=== PATIENT | female | born 1990 | race Caucasian/White ===

== ENCOUNTER → 2016-12-20 | Outpatient (CLI) | payer MEDICAID, OTHER ==
[2016-12-20 15:27] LABS: MEAN CORPUSCULAR HEMOGLOBIN 31.1 pg (27.0-33.0); MEAN CORPUSCULAR HGB CONC 34.1 g/dl (32.0-36.5); MEAN CORPUSCULAR VOLUME 91.1 fl (80.0-96.0); WHITE BLOOD COUNT 14.3 K/mm3 (4.0-10.0)
[2016-12-22 11:12] LABS: HEP C VIRUS AB SCREEN MEDICARE 0.1 INDEX (<0.8)
== END ==
LOC: M LAB 13:46
PROVIDERS: ATTEND Obstetrics & Gynecology
DX: Z34.82 Encounter for supervision of other normal pregnancy, second trimester (principal)

== ENCOUNTER → 2017-01-18 | Outpatient (REF) | payer OTHER | LOC: M LAB REF 16:27 | PROVIDERS: ATTEND Advanced Practice Midwife | DX: Z34.83 Encounter for supervision of other normal pregnancy, third trimester (principal) ==

== ENCOUNTER 2017-02-14 05:59 | Inpatient (IN) | payer OTHER ==
[2017-02-14] VITALS (35 sets, daily range): BP systolic 98–165; BP diastolic 59–89
[~2017-02-14] VITALS: Ht 157.5 cm; Wt 61.0 kg
[2017-02-14] MEDS ORDERED: LACTATED RINGER'S 1000 ML IV STA (06:48)
[2017-02-14] MEDS ORDERED: AMPICILLIN SOD 2 GM in D5W MINI-BAG PLUS 100 ML IV STA (06:48)
[2017-02-14] MEDS ORDERED: OXYTOCIN DRIP 30 UNITS in APPROPRIATE DILUENT 1 EA IV SCH ×2 (07:00→16:21)
[2017-02-14 08:21] LABS: MEAN CORPUSCULAR HEMOGLOBIN 31.4 pg (27.0-33.0); MEAN CORPUSCULAR HGB CONC 34.3 g/dl (32.0-36.5); MEAN CORPUSCULAR VOLUME 91.6 fl (80.0-96.0); RED CELL DISTRIBUTION WIDTH 13.7 % (11.5-14.5); WHITE BLOOD COUNT 13.2 K/mm3 (4.0-10.0)
[2017-02-14] MEDS: LR 1,000 ML IV SCH ×2 (10:06→13:47)
[2017-02-14] MEDS ORDERED: FENTANYL 2MCG/ML ROPIVACAINE 0.2% IN 0.9% NACL 200ML IVBAG As Ordered ONE (10:28)
[2017-02-14] MEDS ORDERED: EPIDURAL/PCA KEYS XX PRN (11:45)
[2017-02-14] MEDS ORDERED: ePHEDrine SULFATE 25 MG/5 ML(5MG/ML) SYRINGE IV PRN (11:45)
[2017-02-14] MEDS ORDERED: EPIDURAL COMMENT XX SCH (11:45)
[2017-02-14] MEDS ORDERED: FENTANYL/ROPIVACAINE/NACL BAG 200 ML EPIDURAL SCH (11:45)
[2017-02-14] MEDS ORDERED: NALOXONE INJ 0.4 MG/1 ML VIAL (J2310) IV PRN (11:45)
[2017-02-14] MEDS ORDERED: REFRIGERATOR IV KEYS XX PRN (11:45)
[2017-02-14] MEDS ORDERED: ONDANSETRON 4MG/2ML VIAL (J2405) IV PRN (11:45)
[2017-02-14] MEDS ORDERED: diphenhydrAMINE INJ 50MG/ML VIAL (J1200) IV PRN (11:45)
[2017-02-14] MEDS ORDERED: LACTATED RINGER'S 1000 ML IV PRN (11:45)
[2017-02-14] MEDS ORDERED: AMPICILLIN SOD 1 GM in D5W MINI-BAG PLUS 50 ML IV SCH (12:00)
[2017-02-14] MEDS ORDERED: DOCUSATE SODIUM 100 MG CAP PO PRN (16:30)
[2017-02-14] MEDS ORDERED: RHOGAM 300 MCG (1500 IU) INJ (J2790) IM SCH (16:30)
[2017-02-14] MEDS ORDERED: ANUSOL HC CREAM 30GM TOP PRN (16:30)
[2017-02-14] MEDS ORDERED: METHYLERGONOVINE MALEATE 0.2 MG TAB PO PRN (16:30)
[2017-02-14] MEDS ORDERED: MEASLES,MUMPS,RUBELLA VACCINE INJ (MMR-II) (90707) SC SCH (16:30)
[2017-02-14] MEDS ORDERED: DIBUCAINE 1% OINTMENT 30GM TOP PRN (16:30)
[2017-02-14] MEDS ORDERED: ACETAMINOPHEN 500 MG TAB PO PRN (16:30)
[2017-02-14] MEDS: IBUPROFEN 800 MG TAB PO PRN (16:56)
--- NOTE | 2017-02-14 17:10 | DNPDOC ---
[facility] Delivery Note Delivery Note Patient is 26 year old female who is now a at 39.3 weeks gestation. She was admitted to L&D for IOL for IUGR. Fetus measuring 8%. She received Pitocin for her induction. She obtained an epidural for pain management. She progressed to fully dilated at 1458. She delivered a live male spontaneously at 1503, which was nurse controlled. No nuchal cord reported with delivery. The baby was active and crying when placed on maternal abdomen. The cord was clamped and cut prior to arrival. A 3 vessel cord was noted. Cord blood obtained. Placenta delivered intact and spontaneously at 1508 by Hopkins mechanism. Uterine hemostasis achieved by rapid infusion of IV Pitocin and fundal massage. Perineal inspection done. Bilateral labial lacerations noted. Repaired bilaterally with a 4.0 vicryl rapide to acheive hemostasis. EBL 250 cc. 8/ 9. Weight 6 lbs. 9 oz; 2990 grams. Mother named her son Ivan and she will be him. Mom and baby in stable condition. MARCI SANDERS CNM Feb 14, 2017 17:10
[2017-02-14 17:46] LABS: MEAN CORPUSCULAR HEMOGLOBIN 31.4 pg (27.0-33.0); MEAN CORPUSCULAR HGB CONC 34.4 g/dl (32.0-36.5); MEAN CORPUSCULAR VOLUME 91.3 fl (80.0-96.0); RED CELL DISTRIBUTION WIDTH 13.3 % (11.5-14.5); WHITE BLOOD COUNT 22.4 K/mm3 (4.0-10.0)
[2017-02-15] MEDS: IBUPROFEN 800 MG TAB PO PRN ×2 (06:01→19:28)
[2017-02-15 06:14] VITALS: BP 121/75
[2017-02-15] MEDS: PRENATAL VITAMIN TAB PO SCH (08:11)
[2017-02-15 18:00] VITALS: BP 121/61
[2017-02-16 06:19] VITALS: BP 111/64
[2017-02-16] MEDS: PRENATAL VITAMIN TAB PO SCH (08:16)
[2017-02-16] MEDS ORDERED: PRENTAB9 PO (09:17)
[2017-02-16] MEDS ORDERED: ACET50TA PO (09:17)
[2017-02-16] MEDS ORDERED: IBUP-1114 PO (09:17)
== END 2017-02-16 11:20 | disposition home or self-care (01) | DRG 560 ==
LOC: M LDI 05:59 → M OBS 17:52
PROVIDERS: ADMIT Obstetrics & Gynecology; ATTEND Obstetrics & Gynecology
PROC: 10E0XZZ Delivery of Products of Conception, External Approach (ICD-10-PCS; principal; 2017-02-14)
PROC: 0HQ9XZZ Repair Perineum Skin, External Approach (ICD-10-PCS; 2017-02-14)
PROC: 3E033VJ Introduction of Other Hormone into Peripheral Vein, Percutaneous Approach (ICD-10-PCS; 2017-02-14)
DX: O36.5930 Maternal care for other known or suspected poor fetal growth, third trimester, not applicable or unspecified (principal); D69.6 Thrombocytopenia, unspecified; O99.113 Other diseases of the blood and blood-forming organs and certain disorders involving the immune mechanism complicating pregnancy, third trimester; F17.200 Nicotine dependence, unspecified, uncomplicated; Z37.0 Single live birth; O99.334 Smoking (tobacco) complicating childbirth; Z3A.39 39 weeks gestation of pregnancy; O70.0 First degree perineal laceration during delivery

== ENCOUNTER → 2018-05-24 | Outpatient (CLI) | payer OTHER | LOC: M WUC 14:53 | DX: S62.304D Unspecified fracture of fourth metacarpal bone, right hand, subsequent encounter for fracture with routine healing (principal); X58.XXXD Exposure to other specified factors, subsequent encounter; Y92.9 Unspecified place or not applicable; S62.306D Unspecified fracture of fifth metacarpal bone, right hand, subsequent encounter for fracture with routine healing | CPT/HCPCS: 73120 ==

== ENCOUNTER → 2018-06-10 | Outpatient (CLI) | payer OTHER | LOC: M OUTALCOH 08:14 | DX: Z13.89 Encounter for screening for other disorder (principal); F15.20 Other stimulant dependence, uncomplicated ==

== ENCOUNTER 2018-06-17 09:37 | Outpatient (RCR) | payer OTHER | END 2018-07-03 | LOC: M OUTALCOH 06-27 14:00 | DX: F15.20 Other stimulant dependence, uncomplicated (principal); F12.10 Cannabis abuse, uncomplicated; F17.200 Nicotine dependence, unspecified, uncomplicated ==

== ENCOUNTER 2018-07-04 02:00 | Outpatient (RCR) | payer OTHER | END 2018-08-02 | LOC: M OUTALCOH 07-10 08:00 | DX: F15.20 Other stimulant dependence, uncomplicated (principal); F12.10 Cannabis abuse, uncomplicated; F17.200 Nicotine dependence, unspecified, uncomplicated ==

== ENCOUNTER → 2018-08-29 | Outpatient (REF) | payer OTHER ==
[~2018-08-29] MED LIST: IBUP-1114 PO; MAPA500T17 PO; PRENTAB9 PO
[2018-08-29 22:24] LABS: INFLUENZA A AMPLIFICATION NEGATIVE (NEGATIVE); INFLUENZA B AMPLIFICATION NEGATIVE (NEGATIVE)
== END ==
LOC: M LAB REF 09:28
PROVIDERS: ATTEND Physician Assistant
DX: J11.1 Influenza due to unidentified influenza virus with other respiratory manifestations (principal)

== ENCOUNTER → 2018-09-02 | Outpatient (RCR) | payer OTHER ==
[~2018-09-02] MED LIST changes: -MAPA500T17 PO; +MAPA500T2 PO
== END ==
LOC: M OUTALCOH 08-05 15:55
PROVIDERS: ATTEND Psychiatry & Neurology Psychiatry
DX: F15.20 Other stimulant dependence, uncomplicated (principal); F12.10 Cannabis abuse, uncomplicated; F17.200 Nicotine dependence, unspecified, uncomplicated

== ENCOUNTER 2018-09-26 10:00 | Outpatient (RCR) | payer OTHER | END 2018-10-03 | LOC: M OUTALCOH 10:00 | PROVIDERS: ATTEND Psychiatry & Neurology Psychiatry | DX: F15.20 Other stimulant dependence, uncomplicated (principal); F12.10 Cannabis abuse, uncomplicated; F17.200 Nicotine dependence, unspecified, uncomplicated ==

== ENCOUNTER → 2018-12-26 | Outpatient (CLI) | payer MEDICAID, OTHER, SELFPAY | LOC: M OUTALCOH 08:18 | PROVIDERS: ATTEND Psychiatry & Neurology Psychiatry | DX: F15.20 Other stimulant dependence, uncomplicated (principal); F12.10 Cannabis abuse, uncomplicated ==

== ENCOUNTER → 2019-02-11 | Outpatient (CLI) | payer MEDICAID | LOC: M OUTALCOH 07:58 | PROVIDERS: ATTEND Psychiatry & Neurology Psychiatry | DX: F15.20 Other stimulant dependence, uncomplicated (principal) ==

== ENCOUNTER 2019-02-28 08:45 | Outpatient (RCR) | payer MEDICAID | END 2019-03-02 | LOC: M OUTALCOH 08:45 | PROVIDERS: ATTEND Psychiatry & Neurology Psychiatry | DX: F15.20 Other stimulant dependence, uncomplicated (principal); F12.10 Cannabis abuse, uncomplicated; F17.200 Nicotine dependence, unspecified, uncomplicated ==

== ENCOUNTER 2019-03-07 08:45 | Outpatient (RCR) | payer MEDICAID | END 2019-04-02 | LOC: M OUTALCOH 08:45 | PROVIDERS: ATTEND Psychiatry & Neurology Psychiatry | DX: F15.20 Other stimulant dependence, uncomplicated (principal); F12.10 Cannabis abuse, uncomplicated; F17.200 Nicotine dependence, unspecified, uncomplicated ==

== ENCOUNTER → 2019-12-02 | Outpatient (REF) | payer OTHER ==
[2019-12-02 17:43] LABS: HCG, SERUM QUANTITATIVE 420 MIU/ML
[2019-12-02 17:55] LABS: HEMATOCRIT 42.4 % (36.0-47.0); HEMOGLOBIN 14.3 g/dl (12.0-15.5); MEAN CORPUSCULAR HEMOGLOBIN 29.9 pg (27.0-33.0); MEAN CORPUSCULAR HGB CONC 33.7 g/dl (32.0-36.5); MEAN CORPUSCULAR VOLUME 88.5 fl (80.0-96.0); PLATELET COUNT, AUTOMATED 189 10^3/uL (150-450); RED BLOOD COUNT 4.79 10^6/uL (4.00-5.40); WHITE BLOOD COUNT 8.9 10^3/uL (4.0-10.0)
[2019-12-03 10:30] LABS: RUBELLA IgG QUALITATIVE IMMUNE (IMMUNE)
[2019-12-03 10:59] LABS: HEPATITIS C VIRUS ABY INDEX 0.1 INDEX (<0.8)
[2019-12-03 11:00] LABS: HIV 1&2 SCREEN CENTAUR NEGATIVE (NEGATIVE)
== END ==
LOC: M LAB REF 17:07
PROVIDERS: ATTEND Obstetrics & Gynecology
DX: O36.80X0 Pregnancy with inconclusive fetal viability, not applicable or unspecified (principal); Z3A.00 Weeks of gestation of pregnancy not specified

== ENCOUNTER → 2019-12-08 | Outpatient (REF) | payer OTHER | LOC: M LAB REF 11:47 | PROVIDERS: ATTEND Obstetrics & Gynecology | DX: O36.80X0 Pregnancy with inconclusive fetal viability, not applicable or unspecified (principal); Z3A.00 Weeks of gestation of pregnancy not specified ==

== ENCOUNTER → 2019-12-16 | Outpatient (REF) | payer OTHER | LOC: M LAB REF 12:11 | PROVIDERS: ATTEND Obstetrics & Gynecology | DX: O36.80X0 Pregnancy with inconclusive fetal viability, not applicable or unspecified (principal) ==

== ENCOUNTER → 2019-12-26 | Outpatient (CLI) | payer OTHER ==
--- NOTE | 2019-12-26 15:46 | REP ---
REASON FOR EXAM: Followup. COMPARISON: 12/10/2019 Transvesical imaging was obtained. Once again, within the uterus there is an anechoic structure with increased echoes surrounding it, consistent with a decidual reaction. Today's examination shows echogenic material within the gestational sac consistent with a pole, the mean crown-rump length measurement of which is consistent with a 7 week 3 day gestational age. Based on that, the estimated date of delivery is 08/10/2020. Doppler interrogation of the heart shows a heart rate of 153 beats per minute. Evaluation of the maternal adnexal spaces shows no abnormalities. To the right of the developing chorion, there is a 1.3 x 1.3 x 1.4 cm sized area of decreased echoes. This previously measured 2.4 x 0.7 x 1.8 cm. IMPRESSION: Early OB ultrasound as described above. The small area of decreased echoes seen today has gotten smaller compared to the prior exam, likely representing an area of chorionic nonfusion during this early stage of . Certainly, this should be correlated clinically for a resolving subchorionic hemorrhage. Electronically Signed by Sam Villatoro DO 12/26/2019 03:52 P
== END ==
LOC: M RAD 10:33
PROVIDERS: ATTEND Obstetrics & Gynecology
DX: O36.80X0 Pregnancy with inconclusive fetal viability, not applicable or unspecified (principal)

== ENCOUNTER → 2020-03-15 | Outpatient (CLI) | payer OTHER ==
--- NOTE | 2020-03-15 12:39 | REP ---
REASON: anatomy. Multiple ultrasonographic images of the gravid uterus shows a single living intrauterine gestation in the transverse head to the maternal left position. Doppler interrogation of the heart shows a heart rate of 144 beats per minute. The placenta is posterior and not low lying. The subjective amniotic fluid volume is within normal limits. The cervix measures 3.8 cm in length and is closed. Evaluation of the maternal adnexal spaces showed no abnormalities. BPD 4.6 cm = 190 weeks 6 days HC 17.1 cm = 19 weeks 5 days AC 14.4 cm = 19 weeks 5 days FL 3.0 cm = 19 weeks 2 days The estimated weight of 298 grams, which is at the 40th percentile for a 53-kwxn-1-day gestational age. The anatomical structures seen as within normal limits are as follows: Thalami, cavum septum pellucidum, cerebellum, cisterna magna, cerebral ventricles, upper lip, stomach, cord insertion, three-vessel umbilical cord, kidneys, bladder, spine, and upper and lower extremities. Four chamber heart and ventricular outflow tracts are seen suboptimally today. IMPRESSION: Single living intrauterine gestation as described above with an estimated gestational age of 19 weeks 3 days via composite criteria and estimated date of delivery of 08/06/2020 by today's exam. No anomalies were detected, however, I recommend a followup examination to better visualize those structures not well seen today as described above.
== END ==
LOC: M WHC 07:50
PROVIDERS: ATTEND Obstetrics & Gynecology
DX: Z34.82 Encounter for supervision of other normal pregnancy, second trimester (principal); Z3A.19 19 weeks gestation of pregnancy

== ENCOUNTER → 2020-05-06 | Outpatient (CLI) | payer OTHER ==
[2020-05-06 16:36] LABS: HEMATOCRIT 37.3 % (36.0-47.0); HEMOGLOBIN 12.6 g/dl (12.0-15.5); MEAN CORPUSCULAR HGB CONC 33.8 g/dl (32.0-36.5); MEAN CORPUSCULAR VOLUME 91.6 fl (80.0-96.0); PLATELET COUNT, AUTOMATED 153 10^3/uL (150-450); RED BLOOD COUNT 4.07 10^6/uL (4.00-5.40); WHITE BLOOD COUNT 13.6 10^3/uL (4.0-10.0)
== END ==
LOC: M WUC 13:03
PROVIDERS: ATTEND Obstetrics & Gynecology
DX: Z34.82 Encounter for supervision of other normal pregnancy, second trimester (principal); Z3A.00 Weeks of gestation of pregnancy not specified

== ENCOUNTER → 2020-07-06 | Outpatient (REF) | payer OTHER | LOC: M LAB REF 16:35 | PROVIDERS: ATTEND Advanced Practice Midwife | DX: Z34.83 Encounter for supervision of other normal pregnancy, third trimester (principal); Z3A.00 Weeks of gestation of pregnancy not specified ==

== ENCOUNTER 2020-08-08 13:42 | Outpatient (CLI) | payer OTHER ==
[~2020-08-08] VITALS: Ht 154.9 cm; Wt 80.7 kg
[2020-08-08 14:01] VITALS: BP 113/67
[2020-08-08] MEDS ORDERED: TUMS500C PO (14:08)
[2020-08-08 16:03] VITALS: BP 128/84
[2020-08-08 17:06] VITALS: BP 131/72
[2020-08-08 18:46] VITALS: BP 120/77
[2020-08-08 20:15] VITALS: BP 119/74
== END 2020-08-08 20:42 | disposition home or self-care (01) ==
LOC: M LDO 13:42
PROVIDERS: ATTEND Obstetrics & Gynecology
DX: O47.1 False labor at or after 37 completed weeks of gestation (principal); Z3A.40 40 weeks gestation of pregnancy

== ENCOUNTER 2020-08-09 20:12 | Inpatient (IN) | payer OTHER ==
[~2020-08-09] VITALS: Ht 154.9 cm; Wt 81.9 kg
[2020-08-09] MEDS ORDERED: LACTATED RINGER'S 1000 ML IV STA (20:18)
[2020-08-09] MEDS ORDERED: LR 1,000 ML IV SCH (20:18)
[2020-08-09 21:09] LABS: HEMATOCRIT 39.9 % (36.0-47.0); HEMOGLOBIN 13.3 g/dl (12.0-15.5); MEAN CORPUSCULAR HEMOGLOBIN 29.8 pg (27.0-33.0); MEAN CORPUSCULAR HGB CONC 33.3 g/dl (32.0-36.5); MEAN CORPUSCULAR VOLUME 89.5 fl (80.0-96.0); PLATELET COUNT, AUTOMATED 145 10^3/uL (150-450); RED BLOOD COUNT 4.46 10^6/uL (4.00-5.40); WHITE BLOOD COUNT 14.5 10^3/uL (4.0-10.0)
[2020-08-09] MEDS: CALCIUM CARBONATE 500 MG CHEW U/D PO PRN (22:18)
[2020-08-10] VITALS (30 sets, daily range): BP systolic 107–137; BP diastolic 64–93
[2020-08-10] MEDS ORDERED: FENTANYL 2MCG/ML ROPIVACAINE 0.2% IN 0.9% NACL 100ML IVBAG As Ordered ONE (01:56)
[2020-08-10] MEDS ORDERED: OXYTOCIN DRIP 30 UNITS in IV 1 EA IV SCH ×2 (02:00→05:34)
[2020-08-10] MEDS ORDERED: ePHEDrine SULFATE 25 MG/5 ML(5MG/ML) SYRINGE IV PRN (02:25)
[2020-08-10] MEDS ORDERED: ONDANSETRON 4MG/2ML VIAL IV PRN (02:25)
[2020-08-10] MEDS ORDERED: LACTATED RINGER'S 1000 ML IV PRN (02:25)
[2020-08-10] MEDS ORDERED: EPIDURAL COMMENT XX SCH (02:25)
[2020-08-10] MEDS ORDERED: EPIDURAL/PCA KEYS XX PRN (02:25)
[2020-08-10] MEDS ORDERED: REFRIGERATOR IV KEYS XX PRN (02:25)
[2020-08-10] MEDS ORDERED: diphenhydrAMINE 50MG/ML VIAL (J1200) IV PRN (02:25)
[2020-08-10] MEDS ORDERED: FENTANYL/ROPIVACAINE/NACL BAG 100 ML EPIDURAL SCH (02:25)
[2020-08-10] MEDS ORDERED: NALOXONE INJ 0.4MG/1ML VIAL (J2310 PER 1MG) IV PRN (02:25)
[2020-08-10] MEDS: CALCIUM CARBONATE 500 MG CHEW U/D PO PRN (03:23)
[2020-08-10] MEDS ORDERED: METHYLERGONOVINE MALEATE 0.2 MG TAB PO PRN (05:45)
[2020-08-10] MEDS ORDERED: BENZOCAINE 20% HEMORRHOIDAL OINTMENT 28GM TUBE TOP PRN (05:45)
[2020-08-10] MEDS ORDERED: MEASLES,MUMPS,RUBELLA VACCINE INJ (MMR-II) (90707) SC SCH (05:45)
[2020-08-10] MEDS ORDERED: IBUPROFEN 600MG TAB PO PRN (05:45)
[2020-08-10] MEDS ORDERED: ACETAMINOPHEN TAB 650MG DOSE (2X325MG) PO PRN (05:45)
[2020-08-10] MEDS ORDERED: DOCUSATE SODIUM 100MG CAPSULE PO PRN (05:45)
[2020-08-10] MEDS ORDERED: RHOGAM 300 MCG (1500 IU) INJ (J2790) IM SCH (05:45)
[2020-08-10 06:14] LABS: CORD GAS ABE V -2.9; CORD GAS HCO3 V 25.5 MEQ/L; CORD GAS O2 SAT V 35.3 %; CORD GAS PCO2 V 58.9 mmHg; CORD GAS PH V 7.254 UNITS; CORD GAS PO2 V 17.1 mmHg; CORD GAS SBC V 20.6 MEQ/L; CORD GAS TCO2 V 27.3 MEQ/L
[2020-08-10] MEDS: PRENATAL VITAMINS CHEWABLE TABLET PO SCH (08:08)
[2020-08-10] MEDS: IBUPROFEN 800 MG TAB PO PRN ×2 (08:08→17:27)
--- NOTE | 2020-08-10 08:14 | HPE ---
HISTORY AND PHYSICAL DATE OF ADMISSION: 08/09/2020 HISTORY OF PRESENT ILLNESS: Bernadette is a 30-year-old female 5, para 2-0-2-2, with an EDC of 08/03/2020, EGA 41 weeks gestation, who was admitted for induction upon admission. No bleeding or leakage of fluid. Good movement. Her records reviewed, which were essentially unremarkable. labs blood type is A positive. Rubella immune. Hepatitis negative. HIV negative. GC and chlamydia negative. One hour sugar testing was within normal limits. Her GBS is negative. PAST MEDICAL HISTORY: Denies. PAST SURGICAL HISTORY: 1. Left wrist fracture. 2. Left knee torn ACL. SOCIAL HISTORY: She is . Denies any alcohol or drugs. She is a current smoker smoking approximately 3-5 cigarettes per day. MEDICATIONS: vitamins. ALLERGIES: No known drug allergies. PHYSICAL EXAMINATION: HEENT: Grossly within normal limits. ABDOMEN: Soft, nontender, and nondistended. EXTREMITIES: No clubbing, cyanosis, or edema. PELVIC: Vaginal exam done earlier 2 cm dilated, 70% effaced, and -3 station in vertex position. ASSESSMENT: Intrauterine at 41 weeks gestation. GBS negative. Being admitted for an induction. PLAN: Admit to labor and delivery. Routine labs sent. Will initiate Pitocin induction. Pain management also because patient asked for an epidural. We will continue to monitor. Anticipate delivery.
--- NOTE | 2020-08-10 12:14 | DN ---
DELIVERY NOTE DATE OF DELIVERY: 08/10/2020 TIME OF : DESCRIPTION OF DELIVERY: Bernadette is a 30-year-old female, 5, para 2, 0, 2, 2, who was admitted at 41 weeks gestation for an induction. She underwent Pitocin induction, progressed to fully dilated after an epidural. She had artificial rupture of membranes after being fully dilated with meconium stained fluid. She then pushed for less than 10 minutes. Delivered a live male in right occiput anterior position over an intact perineum. Meconium stained fluid noted. Apgars 8 and 9. weight 6 pounds 11 ounces. Placenta delivered spontaneously intact, three-vessel cord. Perineum, vagina, cervix inspected. No laceration noted. Estimated blood loss was 250 cc. Both mother and baby in stable condition.
[2020-08-10] MEDS: ACETAMINOPHEN 500 MG TAB PO PRN ×2 (14:06→21:55)
[2020-08-11] MEDS: IBUPROFEN 800 MG TAB PO PRN ×2 (03:11→11:35)
[2020-08-11] MEDS: ACETAMINOPHEN 500 MG TAB PO PRN (06:29)
[2020-08-11 06:41] VITALS: BP 98/57
[2020-08-11] MEDS: PRENATAL VITAMINS CHEWABLE TABLET PO SCH (08:17)
== END 2020-08-11 14:05 | disposition home or self-care (01) | DRG 560 ==
LOC: M LDI 20:12 → M OBS 08-10 09:30
PROVIDERS: ADMIT Obstetrics & Gynecology; ATTEND Obstetrics & Gynecology
PROC: 3E033VJ Introduction of Other Hormone into Peripheral Vein, Percutaneous Approach (ICD-10-PCS; 2020-08-09)
PROC: 10E0XZZ Delivery of Products of Conception, External Approach (ICD-10-PCS; principal; 2020-08-10)
DX: O48.0 Post-term pregnancy (principal); F17.210 Nicotine dependence, cigarettes, uncomplicated; Z37.0 Single live birth; Z3A.41 41 weeks gestation of pregnancy; O99.334 Smoking (tobacco) complicating childbirth

== ENCOUNTER → 2020-08-09 | Outpatient (CLI) | payer OTHER ==
[~2020-08-09] MED LIST changes: +TUMS500C PO
--- NOTE | 2020-08-09 13:43 | REP ---
INDICATION: BPP/EFW/JULIO C. COMPARISON: 04/19/2020 as well as other prior exams. TECHNIQUE: Real-time sonographic evaluation of the gravid uterus performed. FINDINGS: Estimated gestational age is40 weeks 6 days, EDC 08/03/2020. Today's measurements indicate less than expected growth. Presentation: Cephalic Placenta fundal, grade 3, without evidence of placenta previa. heart rate is recorded at 132 beats per minute. Amniotic fluid is subjectively normal. JULIO C 10.0 (normal 7.0-19.6) Closed cervical length is measured at 3.3 cm. Biophysical profile score 8/8. Biometry chart: BPD: 88 mm, 35 weeks 3 days, less than 5th percentile. HC: 335 mm, 38 weeks 2 days, 6th percentile AC: 321 mm, 36 weeks 0 days, less than 5th percentile Femur length: 70 mm, 36 weeks 0 days, less than 5th percentile HC to AC ratio: 1.04 Estimated weight: 2872g, less than 10th percentile. IMPRESSION: Viable single intrauterine gestation as above. <Electronically signed by Abner Pena > 08/09/20 [id number]
== END ==
LOC: M WHC 11:01
PROVIDERS: ATTEND Obstetrics & Gynecology
DX: Z34.83 Encounter for supervision of other normal pregnancy, third trimester (principal)

== ENCOUNTER → 2021-03-22 | Outpatient (REF) | payer OTHER ==
[2021-03-22 19:30] LABS: HEMATOCRIT 38.5 % (36.0-47.0); HEMOGLOBIN 12.7 g/dl (12.0-15.5); MEAN CORPUSCULAR HEMOGLOBIN 29.5 pg (27.0-33.0); MEAN CORPUSCULAR VOLUME 89.3 fl (80.0-96.0); PLATELET COUNT, AUTOMATED 182 10^3/uL (150-450); RED BLOOD COUNT 4.31 10^6/uL (4.00-5.40); WHITE BLOOD COUNT 8.9 10^3/uL (4.0-10.0)
[2021-03-22 20:26] LABS: HCG, SERUM QUANTITATIVE 47207 MIU/ML; HEPATITIS B SURFACE ANTIGEN NEGATIVE (NEGATIVE); HIV 1&2 SCREEN CENTAUR NEGATIVE (NEGATIVE)
== END ==
LOC: M LAB REF 16:21
PROVIDERS: ATTEND Obstetrics & Gynecology
DX: O36.80X0 Pregnancy with inconclusive fetal viability, not applicable or unspecified (principal); Z3A.00 Weeks of gestation of pregnancy not specified

== ENCOUNTER → 2021-04-19 | Outpatient (REF) | payer OTHER | LOC: M LAB REF 16:42 | PROVIDERS: ATTEND Advanced Practice Midwife | DX: O03.9 Complete or unspecified spontaneous abortion without complication (principal) ==

== ENCOUNTER → 2021-04-26 | Outpatient (REF) | payer OTHER | LOC: M LAB REF 17:02 | PROVIDERS: ATTEND Obstetrics & Gynecology | DX: Z34.83 Encounter for supervision of other normal pregnancy, third trimester (principal) ==

== ENCOUNTER → 2021-05-03 | Outpatient (REF) | payer OTHER | LOC: M LAB REF 17:45 | PROVIDERS: ATTEND Obstetrics & Gynecology | DX: O03.9 Complete or unspecified spontaneous abortion without complication (principal) ==

== ENCOUNTER → 2021-05-16 | Outpatient (REF) | payer OTHER | LOC: M LAB REF 18:00 | PROVIDERS: ATTEND Obstetrics & Gynecology | DX: O03.9 Complete or unspecified spontaneous abortion without complication (principal) ==

== ENCOUNTER → 2021-05-24 | Outpatient (REF) | payer OTHER | LOC: M LAB REF 15:48 | PROVIDERS: ATTEND Obstetrics & Gynecology | DX: O03.9 Complete or unspecified spontaneous abortion without complication (principal) ==

== ENCOUNTER → 2021-12-08 | Outpatient (REF) | payer OTHER ==
[2021-12-08 22:12] LABS: GC DNA AMPLIFICATION NEGATIVE (NEGATIVE)
== END ==
LOC: M LAB REF 20:13
PROVIDERS: ATTEND Physician Assistant
DX: R30.0 Dysuria (principal)

== ENCOUNTER → 2021-12-28 | Outpatient (REF) | payer OTHER ==
[2021-12-28 16:32] LABS: HEMATOCRIT 39.4 % (36.0-47.0); HEMOGLOBIN 13.4 g/dl (12.0-15.5); MEAN CORPUSCULAR HEMOGLOBIN 29.6 pg (27.0-33.0); PLATELET COUNT, AUTOMATED 166 10^3/uL (150-450); RED BLOOD COUNT 4.53 10^6/uL (4.00-5.40); WHITE BLOOD COUNT 8.4 10^3/uL (4.0-10.0)
[2021-12-28 17:55] LABS: HCG, SERUM QUANTITATIVE 70493 MIU/ML; HEPATITIS B SURFACE ANTIGEN NEGATIVE (NEGATIVE); HEPATITIS C VIRUS ABY INDEX 0.1 INDEX (<0.8); HIV 1&2 SCREEN CENTAUR NEGATIVE (NEGATIVE)
== END ==
LOC: M LAB REF 16:12
PROVIDERS: ATTEND Obstetrics & Gynecology
DX: Z32.01 Encounter for pregnancy test, result positive (principal)

== ENCOUNTER → 2022-05-03 | Outpatient (REF) | payer OTHER ==
[2022-05-03 16:36] LABS: BASO # 0.1 10^3/uL (0.0-0.2); BASO % 0.6 % (0.0-1.0); EOS # 0.2 10^3/uL (0.0-0.5); EOS % 1.3 % (0.0-3.0); HEMATOCRIT 36.8 % (36.0-47.0); HEMOGLOBIN 11.9 g/dl (12.0-15.5); LYMPH % 17.7 % (24.0-44.0); MEAN CORPUSCULAR HEMOGLOBIN 30.1 pg (27.0-33.0); MEAN CORPUSCULAR HGB CONC 32.3 g/dl (32.0-36.5); MEAN CORPUSCULAR VOLUME 93.2 fl (80.0-96.0); MONO # 0.8 10^3/uL (0.0-0.8); MONO % 6.7 % (2.0-8.0); NEUTROPHILS # 8.4 10^3/uL (1.5-8.5); NEUTROPHILS % 72.8 % (36.0-66.0); PLATELET COUNT, AUTOMATED 131 10^3/uL (150-450); RED BLOOD COUNT 3.95 10^6/uL (4.00-5.40); WHITE BLOOD COUNT 11.6 10^3/uL (4.0-10.0)
== END ==
LOC: M LABWUC 16:00
PROVIDERS: ATTEND Advanced Practice Midwife
DX: Z34.82 Encounter for supervision of other normal pregnancy, second trimester (principal); Z3A.00 Weeks of gestation of pregnancy not specified

== ENCOUNTER → 2022-06-14 | Outpatient (REF) | payer OTHER | LOC: M LAB REF 16:35 | PROVIDERS: ATTEND Obstetrics & Gynecology | DX: Z34.83 Encounter for supervision of other normal pregnancy, third trimester (principal); Z3A.00 Weeks of gestation of pregnancy not specified ==

== ENCOUNTER 2022-07-16 06:28 | Inpatient (IN) | payer OTHER ==
[2022-07-16] VITALS (36 sets, daily range): BP systolic 86–131; BP diastolic 50–89
[~2022-07-16] VITALS: Ht 157.5 cm; Wt 75.1 kg
[2022-07-16] MEDS ORDERED: ACET500P3 PO (07:33)
[2022-07-16] MEDS ORDERED: HOME MED LIST COMPLETE! XX SCH (07:35)
[2022-07-16 07:45] LABS: HEMATOCRIT 37.2 % (36.0-47.0); HEMOGLOBIN 12.2 g/dl (12.0-15.5); MEAN CORPUSCULAR HEMOGLOBIN 29.3 pg (27.0-33.0); MEAN CORPUSCULAR HGB CONC 32.8 g/dl (32.0-36.5); MEAN CORPUSCULAR VOLUME 89.4 fl (80.0-96.0); PLATELET COUNT, AUTOMATED 140 10^3/uL (150-450); RED BLOOD COUNT 4.16 10^6/uL (4.00-5.40); WHITE BLOOD COUNT 10.7 10^3/uL (4.0-10.0)
[2022-07-16] MEDS ORDERED: METHYLERGONOVINE MALEATE 0.2 MG/ML VIAL (J2210) IM PRN (08:30)
[2022-07-16] MEDS ORDERED: TRANEXAMIC ACID INJection 1,000 MG in NS 100 ML IV PRN (08:30)
[2022-07-16] MEDS ORDERED: OXYTOCIN DRIP 30 UNITS in IV 1 EA IV PRN (08:30)
[2022-07-16] MEDS ORDERED: LIDOCAINE 1% MDV 20ML VIAL INFIL PRN (08:30)
[2022-07-16] MEDS ORDERED: CARBOPROST TROMETHAMINE 250 MCG/ML AMP IM PRN (08:30)
[2022-07-16] MEDS ORDERED: FENTANYL 2MCG/ML ROPIVACAINE 0.2% IN 0.9% NACL 100ML IVBAG As Ordered ONE (08:37)
[2022-07-16] MEDS: LR 1,000 ML IV SCH ×2 (08:47→16:26)
[2022-07-16] MEDS: PRENATAL VITAMINS CHEWABLE TABLET PO SCH (09:00)
[2022-07-16] MEDS ORDERED: FENTANYL/ROPIVACAINE/NACL BAG 100 ML EPIDURAL SCH (09:35)
[2022-07-16] MEDS ORDERED: LR 500 ML IV PRN (09:35)
[2022-07-16] MEDS ORDERED: EPIDURAL/PCA KEYS XX PRN (09:35)
[2022-07-16] MEDS ORDERED: ePHEDrine SULFATE 25 MG/5 ML(5MG/ML) SYRINGE IVP PRN (09:35)
[2022-07-16] MEDS ORDERED: ONDANSETRON 4MG 2ML VIAL IV PRN (10:40)
[2022-07-16] MEDS ORDERED: OXYTOCIN DRIP 30 UNITS in IV 1 EA IV SCH ×2 (13:30→16:45)
[2022-07-16] MEDS ORDERED: IBUPROFEN 600MG TAB PO PRN (16:45)
[2022-07-16] MEDS ORDERED: METHYLERGONOVINE MALEATE 0.2 MG TAB PO PRN (16:45)
[2022-07-16] MEDS ORDERED: ACETAMINOPHEN 500 MG TAB PO PRN (16:45)
[2022-07-16] MEDS ORDERED: DIBUCAINE 1% OINTMENT 30GM TOP PRN (16:45)
[2022-07-16] MEDS ORDERED: LR 1,000 ML IV SCH (16:45)
[2022-07-16] MEDS ORDERED: RHOGAM 300 MCG (1500 IU) INJ (J2790) IM SCH (16:45)
[2022-07-16] MEDS ORDERED: ANUSOL HC CREAM 30GM TOP PRN (16:45)
[2022-07-17] MEDS: ACETAMINOPHEN TAB 650MG DOSE (2X325MG) PO PRN ×2 (01:08→09:35)
[2022-07-17] MEDS: DOCUSATE SODIUM 100MG CAPSULE PO PRN ×3 (05:28→21:25)
[2022-07-17] MEDS: IBUPROFEN 800 MG TAB PO PRN ×2 (05:30→18:52)
[2022-07-17 06:00] VITALS: BP 118/80
[2022-07-17] MEDS: SIMETHICONE 80MG CHEW TAB PO PRN ×2 (06:49→21:25)
[2022-07-17] MEDS: PRENATAL VITAMINS CHEWABLE TABLET PO SCH (09:34)
[2022-07-17] MEDS ORDERED: MOM 30ML SUSPENSION UDC PO ONE (16:05)
[2022-07-17] MEDS ORDERED: FLEET ENEMA PR PRN (16:05)
[2022-07-17 18:00] VITALS: BP 115/73
[2022-07-18 06:00] VITALS: BP 109/58
[2022-07-18] MEDS ORDERED: IBUP80TA PO (07:23)
[2022-07-18] MEDS ORDERED: MEASLES,MUMPS,RUBELLA VACCINE INJ (MMR-II) (90707) SC.IMMUN ONE (09:00)
[2022-07-18] MEDS: PRENATAL VITAMINS CHEWABLE TABLET PO SCH (09:00)
== END 2022-07-18 13:20 | disposition home or self-care (01) | DRG 560 ==
LOC: M LDO 06:28 → M LDI 07:01 → M OBS 18:38
PROVIDERS: ADMIT Obstetrics & Gynecology; ATTEND Obstetrics & Gynecology
PROC: 10E0XZZ Delivery of Products of Conception, External Approach (ICD-10-PCS; principal; 2022-07-16)
PROC: 0HQ9XZZ Repair Perineum Skin, External Approach (ICD-10-PCS; 2022-07-16)
DX: O48.0 Post-term pregnancy (principal); O70.0 First degree perineal laceration during delivery; Z37.0 Single live birth; Z3A.40 40 weeks gestation of pregnancy

== ENCOUNTER → 2024-07-15 | Outpatient (CLI) | payer OTHER ==
[~2024-07-15] MED LIST changes: +ACET500P3 PO; +IBUP80TA PO
== END ==
LOC: M WUC 08:48
PROVIDERS: ATTEND Obstetrics & Gynecology Obstetrics
DX: N83.292 Other ovarian cyst, left side (principal)

== ENCOUNTER → 2025-03-12 | Outpatient (CLI) | payer OTHER ==
[2025-03-12 17:44] LABS: PLATELET COUNT, AUTOMATED 168 10^3/uL (150-450)
[2025-03-12 18:15] LABS: FREE T4 1.17 NG/DL (0.89-1.76); TOTAL 25(OH) VITAMIN D 24.7 NG/ML (20.0-100.0)
[2025-03-12 18:37] LABS: APPEARANCE, URINE CLEAR (CLEAR); BACTERIA, URINE AUTO NEGATIVE (NEGATIVE); BILIRUBIN, URINE AUTO NEGATIVE (NEGATIVE); BLOOD, URINE BLOOD NEGATIVE (NEGATIVE); GLUCOSE, URINE (UA) AUTO NEGATIVE (NEGATIVE); KETONE, URINE AUTO NEGATIVE (NEGATIVE); LEUKOCYTE ESTERASE, URINE AUTO NEGATIVE (NEGATIVE); MUCUS, URINE SMALL (NEGATIVE); NITRITE, URINE AUTO NEGATIVE (NEGATIVE); PROTEIN, URINE AUTO NEGATIVE (NEGATIVE); RBC, URINE AUTO 1 /HPF (0-3); SPECIFIC GRAVITY URINE AUTO 1.019 (1.002-1.035); SQUAMOUS EPITHELIAL CELL UR AU 2 /HPF (0-6); UROBILINOGEN, URINE AUTO 0.2 mg/dL (0.0-2.0); WBC, URINE AUTO 0 /HPF (0-3)
[2025-03-12 18:45] LABS: HIV 1&2 SCREEN NEGATIVE (NEGATIVE)
[2025-03-12 18:53] LABS: HEPATITIS C VIRUS ABY INDEX 0.09 INDEX (<0.8)
== END ==
LOC: M WUC 15:35
PROVIDERS: ATTEND Obstetrics & Gynecology
DX: Z34.81 Encounter for supervision of other normal pregnancy, first trimester (principal)

== ENCOUNTER → 2025-03-24 | Outpatient (REF) | payer OTHER | LOC: M LAB REF 15:07 | PROVIDERS: ATTEND Obstetrics & Gynecology | DX: Z34.81 Encounter for supervision of other normal pregnancy, first trimester (principal) ==